=== PATIENT | female | born 1985 | race African-American/Black ===

== ENCOUNTER 2017-01-05 15:59 | Emergency (ER) | payer SELFPAY ==
[2017-01-05 16:03] VITALS: BMI 36.0
--- NOTE | 2017-01-05 16:53 | PDOC ---
History of Present Illness - General Chief Complaint: Migraine Headache Stated Complaint: HEADACHE, HIGH BLOOD PRESSURE Time Seen by Provider: 01/05/17 16:52 History Source: Patient Exam Limitations: No Limitations - History of Present Illness Initial Comments: 01/05/17 17:35 My Chief Complaint: headache yesterday and today, BP elevated yesterday, nausea today History of Present Illness: She is a 31-year-old female with history of migraines here today complaining of having a generalized headache yesterday today right parietal headache with slight nausea and slight blurring of right eye vision with photophobia. Patient reports having a normal menstrual cycle just finishing yesterday. Patient denies any vomiting, nasal congestion, cough, sore throat, constipation or diarrhea or fever. Patient's boyfriend was sick with flulike symptoms for the month of November. Patient reports "I feel it on coming down with something". She has had no recent travel. Patient reports that headache right parietal area is pounding and nothing has relieved it took migraine medication and ibuprofen without relief of symptoms. Pain currently is a 8 out of 10. PCP: in the [place] unsure of name 01/05/17 18:12 01/05/17 19:12 Timing/Duration: changing over time Severity: moderate Modifying Factors: improves with: other (nothing ) Associated Symptoms: reports: fever/chills, nausea/vomiting (nausea ), other ( rt. eye slight blurring of vision, photophobia) Past History - Past Medical History Allergies/Adverse Reactions: Allergies Allergy/AdvReac Type Severity Reaction Status Date / Time No Known Allergies Allergy Verified 01/05/17 16:03 Home Medications: Ambulatory Orders NK [No Known Home Medication] 01/05/17 Other medical history: MIGRAINES - Psycho/Social/Smoking Cessation Hx Anxiety: No Suicidal Ideation: No Smoking History: Never smoked Hx Alcohol Use: Yes (SOCIAL) Drug/Substance Use Hx: No Substance Use Type: None Review of Systems - Review of Systems Able to Perform ROS?: Yes Constitutional: No: Symptoms Reported HEENTM: Yes: Blurred Vision (rt.eye today, slight ), Other (photophobia). No: Tearing Respiratory: No: Symptoms reported Cardiac (ROS): No: Symptoms Reported ABD/GI: Yes: Nausea. No: Abdominal Distended, Abd. Pain w/ defecation, Blood Streaked Bowels, Constipated, Diarrhea, Difficulty Swallowing, Poor Appetite, Poor Fluid Intake, Rectal Bleeding, Vomiting, Indigestion, Abdominal cramping : No: Symptoms Reported Musculoskeletal: No: Symptoms Reported Integumentary: No: Symptoms Reported Neurological: Yes: Headache (generalized yesterday, today rt. parietal ) *Physical Exam - Vital Signs Last Vital Signs Temp Pulse Resp BP Pulse Ox 98.0 F 79 20 151/67 98 01/05/17 16:00 01/05/17 16:00 01/05/17 16:00 01/05/17 16:00 01/05/17 16:00 - Physical Exam General Appearance: Yes: Appropriately Dressed HEENT: positive: EOMI, NAIMA, Normal ENT Inspection, Photophobia Neck: negative: Lymphadenopathy (R), Lymphadenopathy (L) Respiratory/Chest: positive: Lungs Clear, Normal Breath Sounds. negative: Chest Tender, Respiratory Distress Cardiovascular: positive: Regular Rhythm, Regular Rate, S1, S2 Integumentary: positive: Normal Color Neurologic: positive: hide cleaner II-XII NML intact, Fully Oriented, Alert, Normal Response, Respond to painful stimul, Responsive. negative: Numbness, Sensory Deficit Medical Decision Making - Medical Decision Making 01/05/17 17:39 She is a 31-year-old female with history of migraines here today complaining of having a generalized headache yesterday today right parietal headache with slight nausea and slight blurring of right eye vision with photophobia. Patient reports having a normal menstrual cycle just finishing yesterday. Patient denies any vomiting, nasal congestion, cough, sore throat, constipation or diarrhea or fever. Patient's boyfriend was sick with flulike symptoms for the month of November. Patient reports "I feel it on coming down with something". She has had no recent travel. Patient reports that headache right parietal area is pounding and nothing has relieved it took migraine medication and ibuprofen without relief of symptoms. Pain currently is a MIGRAINE r/o influenza A or B PLAN: urine hcg negative IV insert NS 0.9 % 1000 ml reglan 10 mg IVPB now toradol 30 mg IVPB now influenza A or B rapid negative 01/05/17 17:40 01/05/17 18:27 01/05/17 18:47 01/05/17 19:12 feeling much better will discharge to home 01/05/17 22:12 *DC/Admit/Observation/Transfer Diagnosis at time of Disposition: Migraine Qualifiers: Migraine type: without aura Status migrainosus presence: without status migrainosus Intractability: not intractable Qualified Code(s): G43.009 - Migraine without aura, not intractable, without status migrainosus - Discharge Dispostion Disposition: HOME Condition at time of disposition: Stable - Patient Instructions Additional Instructions: follow up with your primary care provider within the next couple of days Return to emergency room if symptoms recur or new symptoms develop Avoid adding extra salt here food and eating cold cuts or ham rest Patient voiced understanding of discharge instructions and all questions were answered
[2017-01-05] MEDS ORDERED: SODIUM CHLORIDE 0.9% 1000 ML INFUS.BAG IV ONE (17:26)
[2017-01-05] MEDS ORDERED: METOCLOPRAMIDE HCL INJECTION 10 MG/2 ML VIAL IVPB ONE (17:27)
[2017-01-05] MEDS ORDERED: METOCLOPRAMIDE HCL INJECTION 10 MG/2 ML VIAL ONE (17:54)
[2017-01-05] MEDS ORDERED: KETOROLAC TROMETHAMINE 60 MG/2 ML VIAL IM ONE (18:07)
[2017-01-05] MEDS ORDERED: KETOROLAC TROMETHAMINE 30 MG/1 ML VIAL ONE (18:20)
[2017-01-05 19:28] VITALS: BP 114/84; PULSE 68; TEMP 98.7
== END 2017-01-05 19:28 | disposition home or self-care (01) ==
LOC: JERFT 15:59
PROC: 3E033GC Introduction of Other Therapeutic Substance into Peripheral Vein, Percutaneous Approach (ICD-10-PCS; principal; 2017-01-05)
PROC: 3E0233Z Introduction of Anti-inflammatory into Muscle, Percutaneous Approach (ICD-10-PCS; 2017-01-05)
PROC: 3E0337Z Introduction of Electrolytic and Water Balance Substance into Peripheral Vein, Percutaneous Approach (ICD-10-PCS; 2017-01-05)
DX: G43.009 Migraine without aura, not intractable, without status migrainosus (principal)
CPT/HCPCS: 84703; 87804; 99282-25

== ENCOUNTER 2018-02-03 12:20 | Emergency (ER) | payer SELFPAY ==
[2018-02-03 12:23] VITALS: BP 138/93; PULSE 84; TEMP 98.7; BMI 38.2
--- NOTE | 2018-02-03 13:11 | PDOC ---
History of Present Illness - General Chief Complaint: Pain, Acute Stated Complaint: SWOLLEN LT ARM Time Seen by Provider: 02/03/18 12:25 - History of Present Illness Initial Comments: 32-year-old female presents for evaluation of atraumatic left shoulder pain 2 weeks. She describes her pain is achy exacerbated with motion waking her up at night at times. Her pain is relieved with rest. She has no prior problems with the left shoulder negative past medical history NO KNOWN DRUG ALLERGIES. No radiation of symptoms she points to the superior lateral aspect of the left shoulder as the area of her discomfort 02/03/18 13:08 Past History - Past Medical History Allergies/Adverse Reactions: Allergies Allergy/AdvReac Type Severity Reaction Status Date / Time No Known Allergies Allergy Verified 02/03/18 12:21 Home Medications: Ambulatory Orders NK [No Known Home Medication] 01/05/17 COPD: No Other medical history: DENIES MEDICAL HX - Suicide/Smoking/Psychosocial Hx Smoking History: Never smoked Hx Alcohol Use: Yes (SOCIAL) Drug/Substance Use Hx: No Substance Use Type: None Review of Systems - Review of Systems Musculoskeletal: Yes: Joint Pain All Other Systems: Reviewed and Negative *Physical Exam - Vital Signs Last Vital Signs Temp Pulse Resp BP Pulse Ox 98.7 F 84 18 138/93 99 02/03/18 12:21 02/03/18 12:21 02/03/18 12:21 02/03/18 12:21 02/03/18 12:21 - Physical Exam Comments: Left shoulder skin color and temperature are within normal limits she has full range of motion with pain at terminal ranges. 5 out of 5 supraspinatus isolation strength. Positive impingement maneuvers. No evidence of instability. Upper extremity compartments are soft and nontender. No gross sensorimotor deficits. She is negative Spurling maneuver. 02/03/18 13:09 Medical Decision Making - Medical Decision Making This is most likely shoulder impingement syndrome. I'll get a urine and get an x-ray of her left shoulder and have her follow-up with orthopedics 02/03/18 13:10 02/03/18 13:53 X-rays of the left shoulder negative the humeral head as well centered in the glenoid she has a type I acromion there is no evidence of fracture trauma or destructive process *DC/Admit/Observation/Transfer Diagnosis at time of Disposition: Shoulder impingement - Discharge Dispostion Disposition: HOME Condition at time of disposition: Stable Decision to Admit order: No - Referrals Referrals: Star Giles MD [Staff Physician] - - Patient Instructions Printed Discharge Instructions: Shoulder Tendinopathy Additional Instructions: It is important for you to follow-up with orthopedic surgery for further evaluation treatment options of your left shoulder pain. Return to the emergency room if symptoms worsen or go unresolved prior to follow-up with orthopedic surgery pain you may take Tylenol and Motrin for ear pain - Post Discharge Activity
== END 2018-02-03 13:58 | disposition home or self-care (01) ==
LOC: JERFT 12:20
DX: M25.812 Other specified joint disorders, left shoulder (principal)
CPT/HCPCS: 73030-TC-LT-FY; 84703; 99281-25